=== PATIENT | female | born 1950 | race Caucasian/White ===

== ENCOUNTER → 2018-02-27 | Outpatient (CLI) | payer OTHER ==
[~2018-02-27] MED LIST: ALLOPURINOL 30300 M1 PO; BACTRIM DS TAB1 EACH PO; BENTYL 20 MG TA20 M1 PO; CEPHALEXIN 500500 M1 PO; DIABETA 5MG TABL5 MG PO; ELIQUIS5 MG PO; FLECAINIDE ACET50 M1 PO; HCTZ; HYDROCHLOROTHIA25 M1 PO; K-DUR10 MEQ; LOPRESSOR; LOPRESSOR25 PO; METFORMIN; METFORMIN HCL500 MG PO; NORCO 5-325 TA1 EACH PO; OMEPRAZOLE40 MG PO; POTASSIUM CITRA5 MEQ PO; PROMETHAZI6.25 MG/5; TYLENOL325 MG PO; XARELTO20 MG PO
--- NOTE | 2018-02-27 15:38 | 2DMMODE ---
[place] [address] 2 D/M-MODE ECHOCARDIOGRAM Name: SEDRICK VALERA Allan Room: [facility]#: [id number] Admission: 02/27/18 Attend Phys: Margaret Veloz, Discharge: Date of : 50 Date of Service: 02/27/18 1538 Report #: [id number] THIS REPORT FOR: //name// APPROVED REPORT Study performed: 02/27/2018 14:04:19 EXAM: Comprehensive 2D, Doppler, and color-flow Echocardiogram Patient Location: Out-Patient Status: routine BSA: 2.11 HR: 66 bpm BP: 120/72 mmHg Other Information Study Quality: Good Indications Atrial Fibrillation 2D Dimensions IVSd: 11.00 (7-11mm) LVOT Diam: 20.28 (18-24mm) LVDd: 54.09 mm PWd: 11.55 (7-11mm) Ascending Ao: 31.59 (22-36mm) LVDs: 32.35 (25-40mm) Aortic Root: 29.12 mm Volumes Left Atrial Volume (Systole) LA ESV Index: 27.40 mL/m2 Aortic Valve AoV Peak Ulysses.: 1.59 m/s AO Peak Gr.: 10.10 mmHg LVOT Max P.77 mmHg AO Mean Gr.: 5.47 mmHg LVOT Mean P.96 mmHg LVOT Max V: 0.66 m/s AO V2 VTI: 36.91 cm LVOT Mean V: 0.46 m/s FLAQUITA (VTI): 1.36 cm2 LVOT V1 VTI: 15.54 cm Mitral Valve E/A Ratio: 1.02 MV Decel. Time: 306.65 ms MV E Max Ulysses.: 0.87 m/s MV PHT: 88.93 [place] [address] 2 D/M-MODE ECHOCARDIOGRAM Name: SEDRICK VALERA Room: [facility]#: [id number] Admission: 02/27/18 Attend Phys: Margaret Veloz, Discharge: Date of : 50 Date of Service: 02/27/18 1538 Report #: [id number] MVA (PHT): 2.47 cm2 TDI E/Lateral E': 9.67 E/Medial E': 10.88 Medial E' Ulysses.: 0.08 m/s Lateral E' Ulysses.: 0.09 m/s Pulmonary Valve PV Peak Ulysses.: 1.11 m/s PV Peak Gr.: 4.92 mmHg Tricuspid Valve RAP Estimate: 5.00 mmHg TR Peak Gr.: 25.98 mmHg RVSP: 30.98 mmHg PA Pressure: 30.98 mmHg Left Ventricle The left ventricle is normal size. There is normal LV segmental wall motion. Mild concentric left ventricular hypertrophy. Left ventricular systolic function is normal. The left ventricular ejection fraction is within the normal range. LVEF is 50-55%. The left ventricular diastolic function is normal. Right Ventricle The right ventricle is normal size. The right ventricular systolic function is normal. Atria The left atrium size is normal. The right atrium size is normal. Aortic Valve The aortic valve is normal in structure. No aortic regurgitation is present. There is no aortic valvular stenosis. Mitral Valve The mitral valve is normal in structure. Mild mitral regurgitation. No evidence of mitral valve stenosis. Tricuspid Valve The tricuspid valve is normal in structure. Mild tricuspid regurgitation. estimated pa pressure 35 mm Hg Pulmonic Valve The pulmonary valve is normal in structure. There is no pulmonic [place] [address] 2 D/M-MODE ECHOCARDIOGRAM Name: SEDRICK VALERA Room: [facility]#: [id number] Admission: 02/27/18 Attend Phys: Margaret Veloz, Discharge: Date of : 50 Date of Service: 02/27/18 1538 Report #: [id number] Great Vessels The aortic root is normal in size. IVC is not well visualized. Pericardium There is no pericardial effusion. <Conclusion> Mild concentric left ventricular hypertrophy. LVEF is 50-55%. Mild mitral regurgitation. <ELECTRONICALLY SIGNED> By: Milan Ahmadi MD, FACC 02/27/18 1538 37 37 Milan Ahmadi MD, FACC /INF
== END ==
LOC: M.CRD 13:26
DX: I51.7 Cardiomegaly (principal); I34.0 Nonrheumatic mitral (valve) insufficiency; I10 Essential (primary) hypertension; I48.0 Paroxysmal atrial fibrillation